=== PATIENT | male | born 1985 | race Caucasian/White ===

== ENCOUNTER → 2022-09-13 16:00 | Outpatient (CLI) | payer OTHER, SELFPAY ==
--- NOTE | ~2022-09-13 | XR_ITS ---
EXAM: XR hand RT min 3V DATE: 09/13/2022 16:15 HISTORY: S69.91XA - Unspecified injury of right wrist, hand and fi... . COMPARISON: None available. FINDINGS: Normal mineralization. No fracture or dislocation. No lytic or blastic lesion. Joint space s are maintained. No erosion or periosteal change. Soft tissues within normal limits. IMPRESSION: Unremarkable right hand radiograph findings. Reviewed, dictated and finalized at location K. [facility] [employer] [facility]
== END ==
PROVIDERS: PCP Family Medicine; Visit Provider Nurse Practitioner Family
DX: S69.91XA Unspecified injury of right wrist, hand and finger(s), initial encounter (principal)
CPT/HCPCS: 73130

== ENCOUNTER 2025-02-11 09:26 | Outpatient (CLI) | payer OTHER, SELFPAY ==
--- NOTE | ~2025-02-11 | XR_ITS ---
3 VIEWS LUMBAR SPINE Ordering provider: Jessica Ortega NP History: . Sciatica, right side, LOWER BACK AND LT HAND PAIN X6 MONTH . Comparison: None. FINDINGS: VERTEBRAL BODIES: No visible fracture or subluxation. DISK SPACES: Normal. SOFT TISSUES: Normal. Loss of lordosis suggestive of muscle spasm. IMPRESSION: No acute osseous abnormality lumbar spine. Reviewed, dictated and finalized at location A.
--- NOTE | ~2025-02-11 | XR_ITS ---
EXAMINATION: HAND-WILLIAM ARTHRITIS 3+VIEWS DATE: 02/11/2025 10:38 INDICATION: Right hand pain TECHNIQUE: Posteroanterior, lateral, and oblique views of the left and of the right hands as well as a ballcatchers view of both hands were obtained. COMPARISON: None. FINDINGS: Alignment is normal at both hands. No fractures. Joint spaces are normal. No erosions to suggest an i nflammatory arthritis. Soft tissues are unremarkable. IMPRESSION: 1. Normal bilateral hand radiographs. Reviewed, dictated and finalized at location B.
--- NOTE | 2025-02-11 11:00 | NEURO_ITS ---
Impression: # Escobedo, non-diabetic complains of numbness of hands ? # Right Ulnar neuropathy around the elbow ? # Bilateral Carpal tunnel syndrome ? # Normal needle/EMG exam Nerve Conduction Studies ?Stim Site NR Peak (ms) P-T Amp (?V) Site1 Site2 Delta-P (ms) Dist (cm) Lucio (m/s) Left Median Anti Sensory (2-3nd Digit) Wrist ? 4.2 44.3 Wrist 2-3nd Digit 4.2 14.0 33 Wrist ? 4.2 36.4 Wrist 2-3nd Digit 4.2 14.0 33 Right Median Anti Sensory (2-3nd Digit) Wrist ? 4.3 40.2 Wrist 2-3nd Digit 4.3 14.0 33 Wrist ? 4.3 40.1 Wrist 2-3nd Digit 4.3 14.0 33 Left Radial Anti Sensory (Base 1st Digit) Wrist ? 1.9 71.0 Wrist Base 1st Digit 1.9 0.0 Right Radial Anti Sensory (Base 1st Digit) Wrist ? 2.2 21.5 Wrist Base 1st Digit 2.2 0.0 Left Ulnar Anti Sensory (5th Digit) Wrist ? 2.6 41.5 Wrist 5th Digit 2.6 14.0 54 Right Ulnar Anti Sensory (5th Digit) Wrist ? 2.5 65.8 Wrist 5th Digit 2.5 14.0 56 ?Stim Site NR Onset (ms) O-P Amp (mV) Site1 Site2 Delta-0 (ms) Dist (cm) Lucio (m/s) Left Median Motor (Abd Poll Brev) Wrist ? 4.6 1.1 Elbow Wrist 4.9 31.0 63 Elbow ? 9.5 4.4 Right Median Motor (Abd Poll Brev) Wrist ? 4.3 3.2 Elbow Wrist 4.8 30.0 63 Elbow ? 9.1 9.9 Left Ulnar Motor (Abd Dig Minimi) Wrist ? 2.4 7.9 A Elbow Wrist 5.2 32.0 62 A Elbow ? 7.6 6.1 B Elbow Wrist 3.5 22.0 63 B Elbow ? 5.9 4.6 Right Ulnar Motor (Abd Dig Minimi) Wrist ? 2.0 8.5 A Elbow Wrist 6.0 31.0 52 A Elbow ? 8.0 9.3 B Elbow Wrist 4.3 22.0 51 B Elbow ? 6.3 9.2 Electromyography ?Side Muscle Nerve Root Ins Act Fibs Amp Dur Recrt Comment Right 1stDorInt Ulnar C8-T1 Nml Nml Nml Nml Nml Right Ext Indicis Radial (Post Int) C7-8 Nml Nml Nml Nml Nml Right Ext Digitorum Radial (Post Int) C7-8 Nml Nml Nml Nml Nml Right BrachioRad Radial C5-6 Nml Nml Nml Nml Nml Right PronatorTeres Median C6-7 Nml Nml Nml Nml Nml Right Abd Poll Brev Median C8-T1 Nml Nml Nml Nml Nml Right ABD Dig Min Ulnar C8-T1 Nml Nml Nml Nml Nml Right FlexPolLong Median (Ant Int) C7-8 Nml Nml Nml Nml Nml Right Abd Poll Long Radial (Post Int) C7-8 Nml Nml Nml Nml Nml Left 1stDorInt Ulnar C8-T1 Nml Nml Nml Nml Nml Left Ext Indicis Radial (Post Int) C7-8 Nml Nml Nml Nml Nml Left Ext Digitorum Radial (Post Int) C7-8 Nml Nml Nml Nml Nml Left BrachioRad Radial C5-6 Nml Nml Nml Nml Nml Left PronatorTeres Median C6-7 Nml Nml Nml Nml Nml Left Abd Poll Brev Median C8-T1 Nml Nml Nml Nml Nml Left ABD Dig Min Ulnar C8-T1 Nml Nml Nml Nml Nml Left FlexPolLong Median (Ant Int) C7-8 Nml Nml Nml Nml Nml Left Abd Poll Long Radial (Post Int) C7-8 Nml Nml Nml Nml Nml
== END 2025-02-11 09:27 | disposition home or self-care (01) ==
PROVIDERS: PCP Family Medicine
DX: G56.03 Carpal tunnel syndrome, bilateral upper limbs (principal); G56.21 Lesion of ulnar nerve, right upper limb
CPT/HCPCS: 72100; 73130; 95886; 95911